=== PATIENT | female | born 1990 | race Caucasian/White ===

== ENCOUNTER 2017-10-05 23:31 | Emergency (ER) | payer OTHER ==
--- NOTE | 2017-10-06 09:20 | ULT ---
PRELIMINARY REPORT/[facility]/EMERGENTY AFTER-HOURS PROCEDURE US Retroperitoneal Complete CLINICAL HISTORY: 27 years old, female; Pain; Abdominal pain; Flank; Left; TECHNIQUE: Real-time ultrasound of the retroperitoneum (complete) with image documentation. COMPARISON: No relevant prior studies available. FINDINGS: The right kidney measures 11.4 cm in length. The left kidney measures 12.9 cm in length. There is no hydronephrosis or perinephric fluid. Neither ureter is visible or dilated. The renal parenchymal thickness and echogenicity are within normal limits. There is no sonographically visible renal calculus, mass, or cyst. The included images of the urinary bladder appear essentially unremarkable. Bilateral ureteral jets identified. IMPRESSION: Essentially unremarkable sonographic appearance of the kidneys. No hydronephrosis. Thank you for allowing us to participate in the care of your patient. Dictated and Authenticated by: Jaguar Frazier MD 10/06/2017 2:51 AM Central Time ([place] & [place]) FINAL REPORT RENAL SONOGRAM: DATE: 10/06/17. TIME: Performed on an emergency basis at 0135 hours. HISTORY: Left flank pain. FINDINGS: Findings agree with the preliminary report by Dr. Frazier from [facility]. No hydronephrosis or other findings acute urinary tract obstruction. POS: [facility]
--- NOTE | 2017-10-06 09:21 | ULT ---
PRELIMINARY REPORT/[facility]/EMERGENTY AFTER-HOURS PROCEDURE US After First Trimester, Transabdominal CLINICAL HISTORY: 27 years old, female; Pain and condition or disease; Lmp or gestational age (weeks): 16w2d; Other: Br oken iud in left fallopian tube; complicated by abdominal or pelvic pain; Other: Left flank pain; 3rd ; TECHNIQUE: Real-time transabdominal obstetrical ultrasound of the maternal pelvis and a second or third trimeste r with image documentation. COMPARISON: No relevant prior studies available. FINDINGS: Single living fetus in breech position. Anterior placenta. No visible placental abnormality on the provided images. Amniotic fluid volume within normal limits. Cervical length was estimated with transabdominal scanning, measuring approximately 3.7 cm. No definite cervical canal dilation or fluid on the provided images. BPD: , 3.4 cm. , 16 weeks, 4 days HC: , 12.9 cm. , 16 weeks, 4 days AC: , 10.7 cm. , 16 weeks, 4 days FL: , 2.2 cm. , 16 weeks, 3 days Composite age: 16 weeks, 4 days. Estimated weight: 160 grams. heart activity documented by the technologist, 160 bpm. Evaluation of anatomy still limited by early gestation. Followup of anatomy later in recommended, as clinically appropriate. No visible maternal adnexal abnormality on the provided images. Neither maternal ovary was definitely visualized. The urinary bladder was not completely evaluated/imaged at this time. IMPRESSION: Single living fetus, composite age: 16 weeks, 4 days. Anterior placenta. No visible placental abnormality on the provided images. Normal amniotic fluid volume. Other details discussed above. Thank you for allowing us to participate in the care of your patient. Dictated and Authenticated by: Jaguar Frazier MD 10/06/2017 3:02 AM Central Time ([place] & [place]) OBSTETRIC SONOGRAM SECOND TRIMESTER: Date: 10-06-17 Performed on emergency basis at 0128 hours. History: Pelvic pain. Second trimester. FINDINGS: Agree with the preliminary report by Dr. Frazier from [facility]. Single viable intrauterine ges tation with estimated gestational age of 16 weeks 4 days. Anterior placenta. No evidence of previa. N o significant abnormalities are demonstrated. Code QA POS: [facility]
== END 2017-10-06 03:14 | disposition home or self-care (01) ==
LOC: ERS 23:31
DX: O99.89 Other specified diseases and conditions complicating pregnancy, childbirth and the puerperium (principal); R10.9 Unspecified abdominal pain; O99.332 Smoking (tobacco) complicating pregnancy, second trimester; Z3A.16 16 weeks gestation of pregnancy; F17.210 Nicotine dependence, cigarettes, uncomplicated
CPT/HCPCS: 76770; 76805